=== PATIENT | male | born 1965 | race Two or more races ===

== ENCOUNTER 2024-09-06 13:16 | Inpatient (IN) | payer MEDICARE, OTHER ==
[~2024-09-06] VITALS: Ht 167.6 cm; Wt 59.0 kg
[2024-09-06 14:03] LABS: BASOPHILS # (AUTO) 0.1 K/uL (0.0-0.2); BASOPHILS % (AUTO) 0.7 % (0.0-2.0); EOSINOPHILS # (AUTO) 0.4 K/uL (0.0-0.7); EOSINOPHILS % (AUTO) 4.4 % (0.0-6.0); HEMATOCRIT 28 % (39-51); HEMOGLOBIN 9.5 g/dL (13.5-17.5); LYMPHOCYTES # (AUTO) 2.7 K/uL (0.8-4.8); LYMPHOCYTES % (AUTO) 30.8 % (20.0-44.0); MEAN CORPUSCULAR HEMOGLOBIN 30 PG (26.0-33.0); MEAN CORPUSCULAR HGB CONC 34 g/dl (31.0-36.0); MEAN CORPUSCULAR VOLUME 88 fL (80-96); MONOCYTES # (AUTO) 0.4 K/uL (0.1-1.30); MONOCYTES % (AUTO) 4.4 % (2.0-12.0); NEUTROPHILS # (AUTO) 5.2 K/uL (1.8-8.9); NEUTROPHILS % (AUTO) 59.7 % (43.0-81.0); PLATELET COUNT (AUTO) 397 K/uL (150-450); RED BLOOD CELL COUNT(AUTO) 3.18 MIL/uL (4.5-6.0); RED CELL DISTRIBUTION WIDTH 15.9 % (11.5-15.0); WHITE BLOOD COUNT (AUTO) 8.6 K/uL (4.3-11.0)
[2024-09-06] MEDS ORDERED: FERR325T24 PO (14:09)
[2024-09-06] MEDS ORDERED: ACET325T53 PO (14:09)
[2024-09-06] MEDS ORDERED: MULT-213 PO (14:09)
[2024-09-06] MEDS ORDERED: DOCU100C36 PO (14:09)
[2024-09-06] MEDS ORDERED: VITS42.53 TP (14:09)
[2024-09-06] MEDS ORDERED: CHOL100043 PO (14:09)
[2024-09-06] MEDS ORDERED: POLY17PO4 PO (14:09)
[2024-09-06] MEDS ORDERED: BOOST VHC PO (14:09)
[2024-09-06] MEDS ORDERED: NA P133E RC (14:09)
[2024-09-06] MEDS ORDERED: AMIN30LI24 PO (14:09)
[2024-09-06] MEDS ORDERED: GABA-532 PO (14:09)
[2024-09-06] MEDS ORDERED: MAGN400O6 PO (14:09)
[2024-09-06] MEDS ORDERED: IPRA3AMP23 NEB (14:09)
[2024-09-06] MEDS ORDERED: SENN-261 PO (14:09)
[2024-09-06] MEDS ORDERED: MIDO10TA PO (14:09)
[2024-09-06] MEDS ORDERED: BISA10SU11 RC (14:09)
[2024-09-06] MEDS ORDERED: COLL30OI TP (14:09)
[2024-09-06 14:12] LABS: CALCIUM, SERUM 9.8 mg/dL (8.5-10.1); CREATININE 1.3 mg/dL (0.6-1.3); POTASSIUM 4.5 mmol/L (3.5-5.1)
[2024-09-06] MEDS ORDERED: Z GUARD REMEDY 4 OZ OINT TP PRN (16:00)
[2024-09-06] MEDS ORDERED: POLYETHYLENE GLYCOL 3350 17 GM POWD.PACK PO PRN (16:00)
[2024-09-06] MEDS ORDERED: ONDANSETRON HCL/PF 4 MG/2 ML VIAL IVP PRN (16:00)
[2024-09-06] MEDS ORDERED: BISACODYL SUPP (10 MG) 10 MG/SUPP.RECT SUPP.RECT RC PRN (16:00)
[2024-09-06] MEDS ORDERED: ACETAMINOPHEN 325 MG TABLET PO PRN (16:00)
[2024-09-06] MEDS ORDERED: NA PHOS,M-B/NA PHOS,DI-BA 1 EA ENEMA RC PRN (16:00)
[2024-09-06] MEDS ORDERED: MAGNESIUM HYDROXIDE 30 ML UDC PO PRN ×2 (16:00)
[2024-09-06] MEDS ORDERED: MAG HYDROX/AL HYDROX/SIMETH 30 ML UDC PO PRN (16:00)
[2024-09-06] MEDS ORDERED: MIDODRINE HCL (5MG) 5 MG TABLET PO PRN (16:30)
[2024-09-06 17:35] VITALS: BP 125/74; TEMP 98.6; O2SAT 98
[2024-09-06] MEDS: GABAPENTIN 100 MG CAPSULE PO SCH (18:05)
[2024-09-06] MEDS: DOCUSATE SODIUM 100 MG CAPSULE PO SCH (18:05)
[2024-09-06] MEDS ORDERED: IPRATROPIUM NEB FS 0.5 MG/2.5 ML AMPUL.NEB IH PRN (19:30)
[2024-09-06] MEDS ORDERED: ALBUTEROL FS 2.5 MG/3 ML VIAL.NEB NEB PRN (19:30)
[2024-09-06 20:25] VITALS: BP 101/61; TEMP 98.4; O2SAT 98
[2024-09-06] MEDS: SENNOSIDES 8.6 MG TABLET PO SCH (21:01)
[2024-09-06 23:51] VITALS: BP 101/61; TEMP 98.4; O2SAT 98
[2024-09-07 04:32] VITALS: BP 97/50; TEMP 98.2; O2SAT 97
[2024-09-07 06:33] LABS: BASOPHILS % (AUTO) 0.5 % (0.0-2.0); EOSINOPHILS # (AUTO) 0.4 K/uL (0.0-0.7); EOSINOPHILS % (AUTO) 6.5 % (0.0-6.0); HEMATOCRIT 26 % (39-51); HEMOGLOBIN 8.8 g/dL (13.5-17.5); LYMPHOCYTES # (AUTO) 2.5 K/uL (0.8-4.8); LYMPHOCYTES % (AUTO) 38.1 % (20.0-44.0); MEAN CORPUSCULAR HEMOGLOBIN 30 PG (26.0-33.0); MEAN CORPUSCULAR HGB CONC 34 g/dl (31.0-36.0); MEAN CORPUSCULAR VOLUME 88 fL (80-96); MONOCYTES # (AUTO) 0.4 K/uL (0.1-1.30); MONOCYTES % (AUTO) 6.2 % (2.0-12.0); NEUTROPHILS # (AUTO) 3.2 K/uL (1.8-8.9); NEUTROPHILS % (AUTO) 48.7 % (43.0-81.0); PLATELET COUNT (AUTO) 370 K/uL (150-450); RED BLOOD CELL COUNT(AUTO) 2.94 MIL/uL (4.5-6.0); RED CELL DISTRIBUTION WIDTH 16.1 % (11.5-15.0); WHITE BLOOD COUNT (AUTO) 6.5 K/uL (4.3-11.0)
[2024-09-07 07:20] LABS: CALCIUM, SERUM 9.7 mg/dL (8.5-10.1); CREATININE 1.2 mg/dL (0.6-1.3); MAGNESIUM 2.5 mg/dL (1.8-2.4); PHOSPHORUS 4.9 mg/dL (2.5-4.9); POTASSIUM 3.6 mmol/L (3.5-5.1)
[2024-09-07 08:00] VITALS: BP 110/53; TEMP 98.1; O2SAT 97
[2024-09-07] MEDS: MULTIVIT W/MINERALS 1 TAB TABLET PO SCH (08:37)
[2024-09-07] MEDS: FERROUS SULFATE (325 MG) 325 MG/TAB TABLET PO SCH (08:38)
[2024-09-07 13:49] VITALS: BP 105/55; TEMP 98; O2SAT 96
[2024-09-07] MEDS: ACETAMINOPHEN 325 MG TABLET PO PRN (18:54)
[2024-09-07 20:00] VITALS: BP 95/59; TEMP 98.2; O2SAT 97
[2024-09-08 04:00] VITALS: BP 112/69; TEMP 98.2; O2SAT 99
[2024-09-08 06:26] LABS: BASOPHILS % (AUTO) 0.5 % (0.0-2.0); EOSINOPHILS # (AUTO) 0.6 K/uL (0.0-0.7); EOSINOPHILS % (AUTO) 7.8 % (0.0-6.0); HEMATOCRIT 25 % (39-51); HEMOGLOBIN 8.6 g/dL (13.5-17.5); LYMPHOCYTES # (AUTO) 2.6 K/uL (0.8-4.8); LYMPHOCYTES % (AUTO) 33.8 % (20.0-44.0); MEAN CORPUSCULAR HEMOGLOBIN 29 PG (26.0-33.0); MEAN CORPUSCULAR HGB CONC 34 g/dl (31.0-36.0); MEAN CORPUSCULAR VOLUME 86 fL (80-96); MONOCYTES # (AUTO) 0.5 K/uL (0.1-1.30); MONOCYTES % (AUTO) 7.1 % (2.0-12.0); NEUTROPHILS # (AUTO) 3.9 K/uL (1.8-8.9); NEUTROPHILS % (AUTO) 50.8 % (43.0-81.0); PLATELET COUNT (AUTO) 375 K/uL (150-450); RED BLOOD CELL COUNT(AUTO) 2.95 MIL/uL (4.5-6.0); WHITE BLOOD COUNT (AUTO) 7.7 K/uL (4.3-11.0)
[2024-09-08 06:52] LABS: CALCIUM, SERUM 9.7 mg/dL (8.5-10.1); CREATININE 1.4 mg/dL (0.6-1.3); POTASSIUM 3.7 mmol/L (3.5-5.1)
[2024-09-08 08:00] VITALS: BP 95/64; TEMP 98.4; O2SAT 96
[2024-09-08] MEDS: GLUCERNA SHAKE 237 ML CAN PO SCH (08:53)
[2024-09-08] MEDS: NEPRO VAN 237 ML CAN PO SCH (08:53)
[2024-09-08 16:00] VITALS: BP 107/63; TEMP 98.4; O2SAT 96
[2024-09-08 20:00] VITALS: BP 99/69; TEMP 98.4; O2SAT 97
[2024-09-09 04:00] VITALS: BP 93/61; TEMP 98.6; O2SAT 98
[2024-09-09] MEDS: IV NS 0.9% 1,000 ML BAG IV ONE (06:29)
[2024-09-09 06:38] LABS: CALCIUM, SERUM 9.8 mg/dL (8.5-10.1); CREATININE 1.6 mg/dL (0.6-1.3); POTASSIUM 3.8 mmol/L (3.5-5.1)
[2024-09-09 06:48] LABS: BASOPHILS % (AUTO) 0.5 % (0.0-2.0); EOSINOPHILS # (AUTO) 0.6 K/uL (0.0-0.7); HEMATOCRIT 26 % (39-51); HEMOGLOBIN 8.7 g/dL (13.5-17.5); LYMPHOCYTES # (AUTO) 2.6 K/uL (0.8-4.8); LYMPHOCYTES % (AUTO) 32.1 % (20.0-44.0); MEAN CORPUSCULAR HEMOGLOBIN 30 PG (26.0-33.0); MEAN CORPUSCULAR HGB CONC 34 g/dl (31.0-36.0); MEAN CORPUSCULAR VOLUME 89 fL (80-96); MONOCYTES # (AUTO) 0.5 K/uL (0.1-1.30); MONOCYTES % (AUTO) 5.9 % (2.0-12.0); NEUTROPHILS # (AUTO) 4.4 K/uL (1.8-8.9); NEUTROPHILS % (AUTO) 54.5 % (43.0-81.0); PLATELET COUNT (AUTO) 364 K/uL (150-450); RED BLOOD CELL COUNT(AUTO) 2.91 MIL/uL (4.5-6.0); RED CELL DISTRIBUTION WIDTH 15.9 % (11.5-15.0); WHITE BLOOD COUNT (AUTO) 8.2 K/uL (4.3-11.0)
[2024-09-09 06:59] LABS: INR 1.03 (0.91-1.10); PROTHROMBIN TIME 10.9 SECS (9.2-11.1)
[2024-09-09 08:00] VITALS: BP 97/55; TEMP 98.8; O2SAT 99
[2024-09-09] MEDS: IV NS 0.9% 1,000 ML IV ONE (10:35)
[2024-09-09] MEDS: THERAHONEY GEL 1.5 OZ TUBE TP SCH (12:07)
[2024-09-09 16:00] VITALS: BP 93/58; TEMP 98.6; O2SAT 97
[2024-09-09] MEDS ORDERED: LIDOCAINE 2%-EPI 1:100,000 30 ML VIAL TP ONE (19:30)
[2024-09-09 20:00] VITALS: BP 99/64; TEMP 98.2; O2SAT 99
[2024-09-09] MEDS ORDERED: LIDOCAINE 2%-EPI 1:100,000 30 ML VIAL IJ ONE ×2 (20:30→21:00)
[2024-09-09] MEDS ORDERED: LIDOCAINE 2%-EPI 1:100,000 30 ML VIAL IJ SCH (21:00)
[2024-09-10 04:00] VITALS: BP 95/60; TEMP 97.7; O2SAT 99
[2024-09-10 07:02] LABS: BASOPHILS % (AUTO) 0.5 % (0.0-2.0); EOSINOPHILS # (AUTO) 0.6 K/uL (0.0-0.7); EOSINOPHILS % (AUTO) 9.6 % (0.0-6.0); HEMATOCRIT 25 % (39-51); HEMOGLOBIN 8.2 g/dL (13.5-17.5); LYMPHOCYTES # (AUTO) 2.4 K/uL (0.8-4.8); MEAN CORPUSCULAR HEMOGLOBIN 29 PG (26.0-33.0); MEAN CORPUSCULAR HGB CONC 33 g/dl (31.0-36.0); MEAN CORPUSCULAR VOLUME 87 fL (80-96); MONOCYTES # (AUTO) 0.4 K/uL (0.1-1.30); MONOCYTES % (AUTO) 5.7 % (2.0-12.0); NEUTROPHILS # (AUTO) 3.1 K/uL (1.8-8.9); NEUTROPHILS % (AUTO) 47.2 % (43.0-81.0); PLATELET COUNT (AUTO) 357 K/uL (150-450); RED BLOOD CELL COUNT(AUTO) 2.86 MIL/uL (4.5-6.0); RED CELL DISTRIBUTION WIDTH 15.7 % (11.5-15.0); WHITE BLOOD COUNT (AUTO) 6.6 K/uL (4.3-11.0)
[2024-09-10 07:26] LABS: ALBUMIN 2.3 g/dL (3.4-5.0); BILIRUBIN,TOTAL 0.2 mg/dL (0.2-1.0); CALCIUM, SERUM 9.3 mg/dL (8.5-10.1); CREATININE 1.1 mg/dL (0.6-1.3); MAGNESIUM 2.4 mg/dL (1.8-2.4); PHOSPHORUS 3.7 mg/dL (2.5-4.9); POTASSIUM 3.5 mmol/L (3.5-5.1); TOTAL PROTEIN, SERUM 7.3 g/dL (6.4-8.2)
[2024-09-10] MEDS: DAKINS QUARTER STRENGTH (0.125%) 480 ML BOTTLE TOP SCH (09:46)
[2024-09-10] MEDS: UREA 10% -AHA 4% CREAM 57 GM TUBE TP SCH (09:47)
[2024-09-10 10:57] VITALS: BP 108/62; O2SAT 97
[2024-09-10 16:00] VITALS: BP 128/78; TEMP 98
[2024-09-10 20:00] VITALS: BP 107/68; TEMP 97.5; O2SAT 100
[2024-09-11 04:00] VITALS: BP 108/66; TEMP 98; O2SAT 98
[2024-09-11 07:10] LABS: PTH, INTACT 6 pg/mL (15-65)
[2024-09-11 09:11] VITALS: BP 98/60; TEMP 98.6
[2024-09-11] MEDS: MORPHINE SULFATE INJ 2 MG/ML DISP.SYRIN IV PRN (10:56)
[2024-09-11] MEDS ORDERED: FLUMAZENIL 0.5 MG VIAL IV PRN (11:30)
[2024-09-11] MEDS ORDERED: MIDAZOLAM HCL 2 MG/2ML VIAL IV PRN (11:30)
[2024-09-11] MEDS ORDERED: FENTANYL PF 250MCG/5ML AMPUL IV PRN (11:30)
[2024-09-11] MEDS ORDERED: NALOXONE PREFILLED SYRINGE 2 MG/2 ML SYRINGE IV PRN (11:30)
[2024-09-11 16:00] VITALS: BP 109/61; TEMP 98; O2SAT 98
[2024-09-11 18:41] VITALS: BP 110/65; O2SAT 97
[2024-09-11 20:00] VITALS: BP 102/68; TEMP 99; O2SAT 100
[2024-09-12 04:00] VITALS: BP 107/53; TEMP 99; O2SAT 100
[2024-09-12 10:55] VITALS: BP 115/62; TEMP 98
[2024-09-12 16:00] VITALS: BP 115/62; TEMP 98; O2SAT 98
[2024-09-12 20:00] VITALS: BP 99/72; TEMP 100; O2SAT 98
[2024-09-13 04:00] VITALS: BP 103/58; TEMP 98.4; O2SAT 99
[2024-09-13 08:00] VITALS: BP 93/58; TEMP 99.1; O2SAT 99
[2024-09-16 16:11] LABS: *SPE A/G RATIO 0.6 (0.7-1.7); *SPE ALBUMIN 2.5 g/dL (2.9-4.4); *SPE ALPHA-1-GLOBULIN 0.3 g/dL (0.0-0.4); *SPE ALPHA-2-GLOBULIN 0.8 g/dL (0.4-1.0); *SPE M-SPIKE Not Observed g/dL (Not Observed); *SPE PROTEIN TOTAL 6.5 g/dL (6.0-8.5); *SPEGAMMA GLOBULIN 1.9 g/dL (0.4-1.8)
== END 2024-09-13 15:20 | DRG 981 ==
LOC: ER 13:36 → MEDSG1 16:32
PROVIDERS: ADMIT Internal Medicine; ATTEND Internal Medicine
PROC: 0KBP0ZZ Excision of Left Hip Muscle, Open Approach (ICD-10-PCS; principal; 2024-09-10)
PROC: 0KBN0ZZ Excision of Right Hip Muscle, Open Approach (ICD-10-PCS; 2024-09-10)
PROC: 0T25X0Z Change Drainage Device in Kidney, External Approach (ICD-10-PCS; 2024-09-11)
DX: N99.522 Malfunction of incontinent external stoma of urinary tract (principal); L89.154 Pressure ulcer of sacral region, stage 4; L89.214 Pressure ulcer of right hip, stage 4; L89.224 Pressure ulcer of left hip, stage 4; N13.30 Unspecified hydronephrosis; Y73.2 Prosthetic and other implants, materials and accessory gastroenterology and urology devices associated with adverse incidents; G90.89 Other disorders of autonomic nervous system; D63.8 Anemia in other chronic diseases classified elsewhere; G62.9 Polyneuropathy, unspecified; D63.1 Anemia in chronic kidney disease; Y92.9 Unspecified place or not applicable; Z79.51 Long term (current) use of inhaled steroids; Z79.899 Other long term (current) drug therapy; G31.84 Mild cognitive impairment of uncertain or unknown etiology; N18.9 Chronic kidney disease, unspecified; M89.8X9 Other specified disorders of bone, unspecified site; Z87.442 Personal history of urinary calculi; N13.9 Obstructive and reflux uropathy, unspecified; B35.1 Tinea unguium; M24.561 Contracture, right knee; M24.562 Contracture, left knee; L85.9 Epidermal thickening, unspecified
CPT/HCPCS: 36415; 76770-TC; 80048-TC; 80053-TC; 82550-TC; 82962-TC; 83735-TC; 83970; 84100-TC; 84155; 84165; 85025-TC; 85610-TC; 87081-TC; A4223; A6253; A6403; G0378; J2250; J2270; J3010; J3490; J7030; J7040

== ENCOUNTER 2024-10-19 02:41 | Inpatient (IN) | payer MEDICARE, OTHER ==
[~2024-10-19] VITALS: Ht 162.6 cm; Wt 49.9 kg
[~2024-10-19 02:41] MED LIST: ACET325T53 PO; AMIN30LI24 PO; BISA10SU11 RC; BOOST VHC PO; CHOL100043 PO; COLL30OI TP; DOCU100C36 PO; FERR325T24 PO; GABA-532 PO; IPRA3AMP23 NEB; MAGN400O6 PO; MIDO10TA PO; MULT-213 PO; NA P133E RC; POLY17PO4 PO; SENN-261 PO; VITS42.53 TP
[2024-10-19 03:25] LABS: BASOPHILS % (AUTO) 0.6 % (0.0-2.0); EOSINOPHILS # (AUTO) 0.4 K/uL (0.0-0.7); EOSINOPHILS % (AUTO) 5.9 % (0.0-6.0); HEMATOCRIT 24 % (39-51); HEMOGLOBIN 7.9 g/dL (13.5-17.5); LYMPHOCYTES # (AUTO) 2.5 K/uL (0.8-4.8); LYMPHOCYTES % (AUTO) 37.4 % (20.0-44.0); MEAN CORPUSCULAR HEMOGLOBIN 28 PG (26.0-33.0); MEAN CORPUSCULAR HGB CONC 33 g/dl (31.0-36.0); MEAN CORPUSCULAR VOLUME 85 fL (80-96); MONOCYTES # (AUTO) 0.4 K/uL (0.1-1.30); MONOCYTES % (AUTO) 5.6 % (2.0-12.0); NEUTROPHILS # (AUTO) 3.4 K/uL (1.8-8.9); NEUTROPHILS % (AUTO) 50.5 % (43.0-81.0); PLATELET COUNT (AUTO) 346 K/uL (150-450); RED BLOOD CELL COUNT(AUTO) 2.88 MIL/uL (4.5-6.0); RED CELL DISTRIBUTION WIDTH 17.4 % (11.5-15.0); WHITE BLOOD COUNT (AUTO) 6.7 K/uL (4.3-11.0)
[2024-10-19 03:31] LABS: CALCIUM, SERUM 10.3 mg/dL (8.5-10.1); POTASSIUM 4.1 mmol/L (3.5-5.1)
[2024-10-19 03:43] LABS: INR 1.05 (0.91-1.10); PROTHROMBIN TIME 11.1 SECS (9.2-11.1)
[2024-10-19 04:19] LABS: APPEARANCE,URINE CLOUDY (CLEAR); BILIRUBIN,URINE NEGATIVE (NEGATIVE); BLOOD, URINE 3+ Ery/uL (NEGATIVE); COLOR,URINE YELLOW (YELLOW); KETONES,URINE NEGATIVE (NEGATIVE); LEUKOCYTE ESTERASE ,URINE 3+ (NEGATIVE); NITRITE, URINE NEGATIVE (NEGATIVE); PROTEIN,URINE 1+ mg/dl (NEGATIVE); UGLUCOSE NEGATIVE (NEGATIVE); UROBILINOGEN,URINE 0.2 EU/dL (0.2)
[2024-10-19 04:35] LABS: RBC,URINE 81-100 /HPF (0-2); WBC,URINE 21-50 /HPF (0-3)
[2024-10-19 04:36] LABS: ADD URINE CULTURE YES; BACTERIA,URINE Many /HPF (None Seen); SQUAMOUS EPITHELIAL CELL,UR Few /HPF (None Seen)
[2024-10-19] MEDS: CEFTRIAXONE 1GM BAG (ER ONLY) 50 ML IV ONE (05:28)
[2024-10-19] MEDS: IV NS 0.9% 1,000 ML IV PRN (06:11)
[2024-10-19] MEDS ORDERED: Z GUARD REMEDY 4 OZ OINT TP PRN (06:30)
[2024-10-19] MEDS: PANTOPRAZOLE 40 MG TABLET.DR PO SCH (07:30)
[2024-10-19] MEDS ORDERED: PANTOPRAZOLE 40 MG TABLET.DR PO ONE (08:33)
[2024-10-19] MEDS: ENOXAPARIN SODIUM 40 MG/0.4 ML DISP.SYRIN SQ SCH (13:12)
[2024-10-19 13:30] VITALS: BP 121/71; TEMP 97.7; O2SAT 98
[2024-10-19 16:00] VITALS: BP 97/53; TEMP 97.9; O2SAT 98
[2024-10-19 20:00] VITALS: BP 109/63; TEMP 98.5; O2SAT 98
[2024-10-20] MEDS: CEFTRIAXONE 1 G in IV D5W 50 ML IV SCH (05:09)
[2024-10-20 07:30] VITALS: BP 102/60; TEMP 99.1; O2SAT 97
[2024-10-20] MEDS ORDERED: NUT.237L67 PO (08:46)
[2024-10-20] MEDS ORDERED: TAMS-12 PO (08:46)
[2024-10-20 16:00] VITALS: BP 109/64; TEMP 100.4; O2SAT 97
[2024-10-20] MEDS: ONDANSETRON HCL/PF 4 MG/2 ML VIAL IVP PRN (17:45)
[2024-10-20] MEDS: ACETAMINOPHEN 325 MG TABLET PO PRN (17:45)
[2024-10-20 20:00] VITALS: BP 113/69; TEMP 98.8; O2SAT 98
[2024-10-20 21:40] VITALS: BP 113/69; TEMP 98.8; O2SAT 98
[2024-10-21 08:00] VITALS: BP 115/73; TEMP 98.2; O2SAT 98
[2024-10-21] MEDS ORDERED: POLYETHYLENE GLYCOL 3350 17 GM POWD.PACK PO PRN (11:00)
[2024-10-21] MEDS ORDERED: ACETAMINOPHEN 325 MG TABLET PO PRN (11:00)
[2024-10-21] MEDS: DAKINS QUARTER STRENGTH (0.125%) 480 ML BOTTLE TOP SCH (13:00)
[2024-10-21] MEDS: PROSOURCE / PROSTAT (PYXIS) 30 ML UDC PO SCH (13:00)
[2024-10-21 16:00] VITALS: BP 104/60; TEMP 98.8; O2SAT 98
[2024-10-21] MEDS: DOCUSATE SODIUM 100 MG CAPSULE PO SCH (17:34)
[2024-10-21 20:00] VITALS: BP 110/70; TEMP 97.6; O2SAT 98
[2024-10-21] MEDS ORDERED: LIDOCAINE 2%-EPI 1:100,000 30 ML VIAL TP ONE (20:00)
[2024-10-21] MEDS: GABAPENTIN 100 MG CAPSULE PO SCH (21:04)
[2024-10-21] MEDS: TAMSULOSIN 0.4 MG CAP.SR.24H PO SCH (21:04)
[2024-10-21] MEDS: SENNOSIDES 8.6 MG TABLET PO SCH (21:04)
[2024-10-22] VITALS (12 sets, daily range): BP systolic 77–110; BP diastolic 41–87; TEMP 97.7–98.8; O2SAT 98–100
[2024-10-22 06:56] LABS: CALCIUM, SERUM 8.8 mg/dL (8.5-10.1); CREATININE 1.5 mg/dL (0.6-1.3); POTASSIUM 3.9 mmol/L (3.5-5.1)
[2024-10-22 07:15] LABS: BASOPHILS % (AUTO) 0.4 % (0.0-2.0); EOSINOPHILS # (AUTO) 0.3 K/uL (0.0-0.7); EOSINOPHILS % (AUTO) 5.6 % (0.0-6.0); HEMATOCRIT 23 % (39-51); HEMOGLOBIN 7.4 g/dL (13.5-17.5); LYMPHOCYTES # (AUTO) 1.6 K/uL (0.8-4.8); LYMPHOCYTES % (AUTO) 31.6 % (20.0-44.0); MEAN CORPUSCULAR HEMOGLOBIN 28 PG (26.0-33.0); MEAN CORPUSCULAR HGB CONC 33 g/dl (31.0-36.0); MEAN CORPUSCULAR VOLUME 85 fL (80-96); MONOCYTES # (AUTO) 0.4 K/uL (0.1-1.30); MONOCYTES % (AUTO) 8.6 % (2.0-12.0); NEUTROPHILS # (AUTO) 2.7 K/uL (1.8-8.9); NEUTROPHILS % (AUTO) 53.8 % (43.0-81.0); PLATELET COUNT (AUTO) 278 K/uL (150-450); RED BLOOD CELL COUNT(AUTO) 2.65 MIL/uL (4.5-6.0); RED CELL DISTRIBUTION WIDTH 17.6 % (11.5-15.0); WHITE BLOOD COUNT (AUTO) 4.9 K/uL (4.3-11.0)
[2024-10-22 07:16] LABS: INR 1.03 (0.91-1.10); PARTIAL THROMBOPLASTIN TIME 29.9 SEC (24.3-34.3); PROTHROMBIN TIME 10.9 SECS (9.2-11.1)
[2024-10-22] MEDS: NEPRO VAN 237 ML CAN PO SCH (09:00)
[2024-10-22] MEDS: CHOLECALCIFEROL 1,000 UNIT TABLET (VIT D3) PO SCH (09:00)
[2024-10-22] MEDS: FERROUS SULFATE (325 MG) 325 MG/TAB TABLET PO SCH (09:00)
[2024-10-22] MEDS: MULTIVIT W/MINERALS 1 TAB TABLET PO SCH (09:00)
[2024-10-22] MEDS: VITAMINS A AND D 56.7 GM TUBE TP SCH (09:42)
[2024-10-22] MEDS: THERAHONEY GEL 1.5 OZ TUBE TP SCH (09:43)
[2024-10-22] MEDS ORDERED: AMPI500C11 PO (11:00)
[2024-10-22] MEDS ORDERED: NALOXONE PREFILLED SYRINGE 2 MG/2 ML SYRINGE IV PRN (12:00)
[2024-10-22] MEDS ORDERED: MIDAZOLAM HCL 2 MG/2ML VIAL IV PRN (12:00)
[2024-10-22] MEDS ORDERED: FLUMAZENIL 0.5 MG VIAL IV PRN (12:00)
[2024-10-22] MEDS ORDERED: FENTANYL PF 250MCG/5ML AMPUL IV PRN (12:00)
[2024-10-22] MEDS: IV NS 0.9% 500 ML IV ONE (13:16)
[2024-10-22] MEDS: IV NS 0.9% 250 ML IV ONE (15:41)
[2024-10-23 08:00] VITALS: BP 105/63; TEMP 99.3; O2SAT 96
[2024-10-23] MEDS: AMPICILLIN TRIHYDRATE 500 MG CAPSULE PO SCH (11:56)
== END 2024-10-23 13:20 | DRG 698 ==
LOC: ER 02:48 → MED 09:26
PROVIDERS: ADMIT Nurse Practitioner Family; ATTEND Nurse Practitioner Family
PROC: 0HBRXZZ Excision of Toe Nail, External Approach (ICD-10-PCS; 2024-10-21)
PROC: 0T9330Z Drainage of Right Kidney Pelvis with Drainage Device, Percutaneous Approach (ICD-10-PCS; principal; 2024-10-22)
DX: T83.022A Displacement of nephrostomy catheter, initial encounter (principal); L89.154 Pressure ulcer of sacral region, stage 4; L89.224 Pressure ulcer of left hip, stage 4; L89.214 Pressure ulcer of right hip, stage 4; N13.6 Pyonephrosis; B95.2 Enterococcus as the cause of diseases classified elsewhere; E83.52 Hypercalcemia; B35.1 Tinea unguium; L85.3 Xerosis cutis; L60.3 Nail dystrophy; N18.9 Chronic kidney disease, unspecified; I12.9 Hypertensive chronic kidney disease with stage 1 through stage 4 chronic kidney disease, or unspecified chronic kidney disease; G62.9 Polyneuropathy, unspecified; D63.1 Anemia in chronic kidney disease; G90.89 Other disorders of autonomic nervous system; R41.89 Other symptoms and signs involving cognitive functions and awareness
CPT/HCPCS: 36415; 76770-TC; 80048-TC; 81001; 85025-TC; 85610-TC; 85730-TC; 87040-TC; 87081-TC; 87086-TC; 87186-TC; A4223; A6403; G0378; J0696; J1650; J2405; J3490; J7030; J7040; J7050; J7060

== ENCOUNTER 2024-12-29 16:25 | Inpatient (IN) | payer MEDICARE, OTHER ==
[~2024-12-29] VITALS: Ht 172.7 cm; Wt 48.5 kg
[~2024-12-29 16:25] MED LIST changes: +AMPI500C11 PO; -BISA10SU11 RC; -BOOST VHC PO; -IPRA3AMP23 NEB; -MAGN400O6 PO; -MIDO10TA PO; -NA P133E RC; +NUT.237L67 PO; +TAMS-12 PO
[2024-12-29 17:19] LABS: PLATELET COUNT (AUTO) 207 K/uL (150-450); RED BLOOD CELL COUNT(AUTO) 4.56 MIL/uL (4.5-6.0); RED CELL DISTRIBUTION WIDTH 18.7 % (11.5-15.0); WHITE BLOOD COUNT (AUTO) 9.3 K/uL (4.3-11.0)
[2024-12-29] MEDS: IV NS 0.9% 1,000 ML BAG IV ONE (17:30)
[2024-12-29] MEDS ORDERED: ASCO-352 PO (17:51)
[2024-12-29] MEDS ORDERED: BISA10SU11 RC (17:51)
[2024-12-29] MEDS ORDERED: NIRM1TAB10 PO (17:51)
[2024-12-29] MEDS ORDERED: GUAI10LI12 PO (17:51)
[2024-12-29] MEDS ORDERED: TRAM50TA2 PO (17:51)
[2024-12-29] MEDS ORDERED: IPRA3AMP22 IH (17:51)
[2024-12-29] MEDS ORDERED: NA P133E RC (17:51)
[2024-12-29] MEDS ORDERED: MAGN400O6 PO (17:51)
[2024-12-29 18:02] LABS: APPEARANCE,URINE BLOODY (CLEAR)
[2024-12-29 18:10] LABS: CALCIUM, SERUM 8.9 mg/dL (8.5-10.1); CREATININE 1.2 mg/dL (0.6-1.3); SODIUM SERUM 136.0 mmol/L (136-145); UREA NITROGEN, BLOOD 23.0 mg/dL (7-18)
[2024-12-29 18:15] LABS: ASPARTATE AMINOTRANSFERASE 44.0 U/L (15-37); TOTAL PROTEIN, SERUM 7.8 g/dL (6.4-8.2)
[2024-12-29 18:16] LABS: SQUAMOUS EPITHELIAL CELL,UR 0-2 /HPF (None Seen)
[2024-12-29] MEDS ORDERED: ONDANSETRON HCL/PF 4 MG/2 ML VIAL IVP PRN (19:00)
[2024-12-29] MEDS ORDERED: MAGNESIUM HYDROXIDE 30 ML UDC PO PRN (19:00)
[2024-12-29] MEDS ORDERED: MAG HYDROX/AL HYDROX/SIMETH 30 ML UDC PO PRN (19:00)
[2024-12-29] MEDS ORDERED: MORPHINE SULFATE INJ 2 MG/ML DISP.SYRIN IV PRN (19:00)
[2024-12-29] MEDS ORDERED: Z GUARD REMEDY 4 OZ OINT TP PRN (19:00)
[2024-12-29] MEDS ORDERED: ALBUTEROL FS 2.5 MG/0.5 ML VIAL.NEB NEB PRN (19:00)
[2024-12-29] MEDS ORDERED: CEFTRIAXONE 1GM BAG (ER ONLY) 50 ML IV ONE (19:27)
[2024-12-29] MEDS ORDERED: ONDANSETRON HCL/PF 4 MG/2 ML VIAL ONE (19:27)
[2024-12-29] MEDS ORDERED: MORPHINE SULFATE INJ 2 MG/ML DISP.SYRIN ONE (19:28)
[2024-12-29 19:29] LABS: EOSINOPHILS % (MANUAL) 5 % (0-4); LYMPHOCYTES % (MANUAL) 35 % (16-48); MONOCYTES % (MANUAL) 1 % (0-11.0); NEUTROPHILS % (MANUAL) 59 (42-76); PLATELET ESTIMATE ADEQU
[2024-12-29] MEDS: ONDANSETRON HCL/PF 4 MG/2 ML VIAL IV ONE (19:30)
[2024-12-29] MEDS: MORPHINE SULFATE INJ 2 MG/ML DISP.SYRIN IV ONE (19:31)
[2024-12-29] MEDS: CEFTRIAXONE 1GM BAG (ER ONLY) 50 ML IV ONE (19:35)
[2024-12-29] MEDS ORDERED: POLYETHYLENE GLYCOL 3350 17 GM POWD.PACK PO PRN (20:00)
[2024-12-29] MEDS ORDERED: GUAIFENESIN/D-METHORPHAN HB 5 ML UDC PO PRN (20:00)
[2024-12-29] MEDS ORDERED: LEVOFLOXACIN 750 MG /D5W 150ML 150 ML IV ONE (20:53)
[2024-12-29] MEDS: IV NS 0.9% 1,000 ML IV SCH (21:26)
[2024-12-29] MEDS: LEVOFLOXACIN 750 MG /D5W 150ML 750 MG in PREMIX 1 EA IV SCH (21:26)
[2024-12-29 21:30] VITALS: BP 139/92; TEMP 97.5; O2SAT 96
[2024-12-29] MEDS: SENNOSIDES 8.6 MG TABLET PO SCH (21:54)
[2024-12-29] MEDS ORDERED: HYDROCODONE/APAP 5/325MG TABLET PO PRN (23:30)
[2024-12-30 07:12] LABS: CALCIUM, SERUM 8.6 mg/dL (8.5-10.1); CREATININE 1.4 mg/dL (0.6-1.3); SODIUM SERUM 139.0 mmol/L (136-145); UREA NITROGEN, BLOOD 19.0 mg/dL (7-18)
[2024-12-30 07:26] LABS: PLATELET COUNT (AUTO) 246 K/uL (150-450); RED BLOOD CELL COUNT(AUTO) 4.02 MIL/uL (4.5-6.0); RED CELL DISTRIBUTION WIDTH 17.7 % (11.5-15.0); WHITE BLOOD COUNT (AUTO) 5.5 K/uL (4.3-11.0)
[2024-12-30] MEDS: PANTOPRAZOLE 40 MG TABLET.DR PO SCH (07:28)
[2024-12-30 08:00] VITALS: BP 125/79; TEMP 97.5; O2SAT 98
[2024-12-30] MEDS: DOCUSATE SODIUM 100 MG CAPSULE PO SCH (08:16)
[2024-12-30] MEDS: MULTIVITAMINS,THERAGRAN 1 UDTAB TABLET PO SCH (08:16)
[2024-12-30] MEDS: ASCORBIC ACID 500 MG TABLET PO SCH (08:16)
[2024-12-30] MEDS: PROSOURCE / PROSTAT (PYXIS) 30 ML UDC PO SCH (08:17)
[2024-12-30] MEDS ORDERED: RITONAVIR PO SCH (09:00)
[2024-12-30] MEDS ORDERED: TRAMADOL HCL 50 MG TABLET PO SCH (09:00)
[2024-12-30] MEDS ORDERED: [UNRECOGNIZED DRUG - OTHER] PO SCH (09:00)
[2024-12-30] MEDS ORDERED: NIRMATRELVIR PO SCH (09:00)
[2024-12-30] MEDS: THERAHONEY GEL 1.5 OZ TUBE TP SCH (13:10)
[2024-12-30] MEDS ORDERED: GADOTERATE MEGLUMINE 10 MMOL/20 ML VIAL IV ONE (15:08)
[2024-12-30 16:00] VITALS: BP 137/81; TEMP 98.6; O2SAT 98
[2024-12-30 20:00] VITALS: BP 119/76; TEMP 99.3; O2SAT 96
[2024-12-30] MEDS: ACETAMINOPHEN 325 MG TABLET PO PRN (22:01)
[2024-12-31 08:00] VITALS: BP 139/91; TEMP 97.9; O2SAT 99
[2024-12-31 10:38] LABS: PLATELET COUNT (AUTO) 243 K/uL (150-450); RED BLOOD CELL COUNT(AUTO) 3.95 MIL/uL (4.5-6.0); RED CELL DISTRIBUTION WIDTH 18.1 % (11.5-15.0); WHITE BLOOD COUNT (AUTO) 4.6 K/uL (4.3-11.0)
[2024-12-31 11:17] LABS: CALCIUM, SERUM 8.4 mg/dL (8.5-10.1); CREATININE 1.3 mg/dL (0.6-1.3); SODIUM SERUM 136.0 mmol/L (136-145); UREA NITROGEN, BLOOD 16.0 mg/dL (7-18)
[2024-12-31 11:18] LABS: ASPARTATE AMINOTRANSFERASE 23.0 U/L (15-37); PHOSPHORUS 2.6 mg/dL (2.5-4.9); TOTAL PROTEIN, SERUM 7.0 g/dL (6.4-8.2)
[2024-12-31 16:00] VITALS: BP 135/88; TEMP 98.8; O2SAT 98
[2024-12-31 20:22] VITALS: BP 132/83; TEMP 98.6; O2SAT 98
[2024-12-31 20:55] VITALS: BP 132/83; TEMP 98.6; O2SAT 98
[2024-12-31] MEDS: LEVOFLOXACIN (250MG) 250 MG TABLET PO SCH (21:06)
[2024-12-31] MEDS: IV NS 0.9% 1,000 ML IV PRN (23:48)
[2025-01-01 07:26] LABS: CALCIUM, SERUM 9.1 mg/dL (8.5-10.1); CREATININE 1.3 mg/dL (0.6-1.3); SODIUM SERUM 140.0 mmol/L (136-145); UREA NITROGEN, BLOOD 17.0 mg/dL (7-18)
[2025-01-01 07:30] VITALS: BP 154/85; TEMP 98.1; O2SAT 98
[2025-01-01 07:57] VITALS: BP 154/85; TEMP 98.1; O2SAT 98
[2025-01-01] MEDS ORDERED: NEPRO VAN 237 ML CAN PO PRN (10:30)
[2025-01-01 14:00] VITALS: BP 129/72
== END 2025-01-01 14:56 | DRG 698 ==
LOC: ER 16:25 → MED 20:20
PROVIDERS: ADMIT Registered Nurse Psychiatric/Mental Health; ATTEND Nurse Practitioner Acute Care
DX: N99.520 Hemorrhage of incontinent external stoma of urinary tract (principal); L89.144 Pressure ulcer of left lower back, stage 4; L89.214 Pressure ulcer of right hip, stage 4; L89.154 Pressure ulcer of sacral region, stage 4; L89.224 Pressure ulcer of left hip, stage 4; N17.0 Acute kidney failure with tubular necrosis; E44.0 Moderate protein-calorie malnutrition; I69.354 Hemiplegia and hemiparesis following cerebral infarction affecting left non-dominant side; D68.59 Other primary thrombophilia; N13.6 Pyonephrosis; L97.329 Non-pressure chronic ulcer of left ankle with unspecified severity; I12.9 Hypertensive chronic kidney disease with stage 1 through stage 4 chronic kidney disease, or unspecified chronic kidney disease; N18.9 Chronic kidney disease, unspecified; Z20.822 Contact with and (suspected) exposure to COVID-19; Y84.8 Other medical procedures as the cause of abnormal reaction of the patient, or of later complication, without mention of misadventure at the time of the procedure; Y92.129 Unspecified place in nursing home as the place of occurrence of the external cause; N40.0 Benign prostatic hyperplasia without lower urinary tract symptoms; E78.5 Hyperlipidemia, unspecified; E11.42 Type 2 diabetes mellitus with diabetic polyneuropathy; E11.22 Type 2 diabetes mellitus with diabetic chronic kidney disease; N25.0 Renal osteodystrophy; Z86.16 Personal history of COVID-19; K21.9 Gastro-esophageal reflux disease without esophagitis; M62.462 Contracture of muscle, left lower leg; M62.461 Contracture of muscle, right lower leg; M62.432 Contracture of muscle, left forearm; Z79.51 Long term (current) use of inhaled steroids; Z79.899 Other long term (current) drug therapy; D63.8 Anemia in other chronic diseases classified elsewhere; Z87.442 Personal history of urinary calculi; E88.09 Other disorders of plasma-protein metabolism, not elsewhere classified; B35.1 Tinea unguium; E11.621 Type 2 diabetes mellitus with foot ulcer; L89.896 Pressure-induced deep tissue damage of other site; L97.529 Non-pressure chronic ulcer of other part of left foot with unspecified severity; L89.526 Pressure-induced deep tissue damage of left ankle; L98.9 Disorder of the skin and subcutaneous tissue, unspecified; E11.622 Type 2 diabetes mellitus with other skin ulcer; Z74.09 Other reduced mobility
CPT/HCPCS: 36415; 71045-TC; 74018; 80048-TC; 80053-TC; 80076-TC; 81001; 83690-TC; 83735-TC; 84100-TC; 85025-TC; 85027-TC; 87040-TC; 87081-TC; 87086-TC; 87186-TC; 94799-TC; A4216; A4223; A6213; A6223; A6403; A9575; G0378; J0696; J1956; J2270; J2405; J7030

== ENCOUNTER 2025-02-07 16:01 | Inpatient (IN) | payer MEDICARE, OTHER ==
[~2025-02-07] VITALS: Ht 167.6 cm; Wt 51.3 kg
[~2025-02-07 16:01] MED LIST changes: -AMPI500C11 PO; +ASCO-352 PO; +BISA10SU11 RC; -CHOL100043 PO; -COLL30OI TP; -FERR325T24 PO; -GABA-532 PO; +GUAI10LI12 PO; +IPRA3AMP22 IH; +MAGN400O6 PO; +NA P133E RC; +NIRM1TAB10 PO; -NUT.237L67 PO; -TAMS-12 PO; +TRAM50TA2 PO; -VITS42.53 TP
[2025-02-07 16:33] LABS: PLATELET COUNT (AUTO) 382 K/uL (150-450); RED BLOOD CELL COUNT(AUTO) 3.64 MIL/uL (4.5-6.0); RED CELL DISTRIBUTION WIDTH 16.3 % (11.5-15.0); WHITE BLOOD COUNT (AUTO) 9.2 K/uL (4.3-11.0)
[2025-02-07 16:39] LABS: CALCIUM, SERUM 9.5 mg/dL (8.5-10.1); CREATININE 1.3 mg/dL (0.6-1.3); SODIUM SERUM 133.0 mmol/L (136-145); UREA NITROGEN, BLOOD 57.0 mg/dL (7-18)
[2025-02-07 16:50] LABS: ASPARTATE AMINOTRANSFERASE 16.0 U/L (15-37); TOTAL PROTEIN, SERUM 8.4 g/dL (6.4-8.2)
[2025-02-07] MEDS ORDERED: MIDO10TA PO (16:58)
[2025-02-07] MEDS ORDERED: MAG30ORA PO (16:58)
[2025-02-07] MEDS ORDERED: NUT.237L71 PO (16:58)
[2025-02-07] MEDS ORDERED: CHOL200026 PO (16:58)
[2025-02-07] MEDS ORDERED: OMEP20CA15 PO (16:58)
[2025-02-07] MEDS: IV NS 0.9% 1,000 ML BAG IV ONE (17:30)
[2025-02-07] MEDS ORDERED: ACETAMINOPHEN 325 MG TABLET PO PRN (18:00)
[2025-02-07] MEDS ORDERED: BISACODYL SUPP (10 MG) 10 MG/SUPP.RECT SUPP.RECT RC PRN (18:00)
[2025-02-07] MEDS ORDERED: MAG HYDROX/AL HYDROX/SIMETH 30 ML UDC PO PRN ×2 (18:00→20:00)
[2025-02-07] MEDS ORDERED: POLYETHYLENE GLYCOL 3350 17 GM POWD.PACK PO PRN (18:00)
[2025-02-07] MEDS ORDERED: MAGNESIUM HYDROXIDE 30 ML UDC PO PRN ×2 (18:00→20:00)
[2025-02-07] MEDS ORDERED: NA PHOS,M-B/NA PHOS,DI-BA 1 EA ENEMA RC PRN (18:00)
[2025-02-07] MEDS ORDERED: ONDANSETRON HCL/PF 4 MG/2 ML VIAL IVP PRN (20:00)
[2025-02-07] MEDS ORDERED: Z GUARD REMEDY 4 OZ OINT TP PRN (20:00)
[2025-02-07 21:20] VITALS: BP 122/74; TEMP 97.5; O2SAT 98
[2025-02-07 21:30] VITALS: BP 122/74; TEMP 97.5; O2SAT 98
[2025-02-07] MEDS: SENNOSIDES 8.6 MG TABLET PO SCH (22:11)
[2025-02-07] MEDS: ACETAMINOPHEN 325 MG TABLET PO PRN (23:08)
[2025-02-08 00:47] LABS: APPEARANCE,URINE CLOUDY (CLEAR)
[2025-02-08 00:49] LABS: SQUAMOUS EPITHELIAL CELL,UR Few /HPF (None Seen)
[2025-02-08 00:50] LABS: CALCIUM OXALATE CRYSTALS,UR Few /HPF (None Seen)
[2025-02-08] MEDS: IV D5/ 0.9% NACL 1,000 ML IV PRN (02:55)
[2025-02-08 04:00] VITALS: BP 110/73; TEMP 97.7; O2SAT 97
[2025-02-08 06:19] LABS: PLATELET COUNT (AUTO) 319 K/uL (150-450); RED BLOOD CELL COUNT(AUTO) 3.25 MIL/uL (4.5-6.0); RED CELL DISTRIBUTION WIDTH 16.6 % (11.5-15.0); WHITE BLOOD COUNT (AUTO) 8.6 K/uL (4.3-11.0)
[2025-02-08 06:36] LABS: CALCIUM, SERUM 9.6 mg/dL (8.5-10.1); CREATININE 1.4 mg/dL (0.6-1.3); PHOSPHORUS 3.8 mg/dL (2.5-4.9); SODIUM SERUM 139.0 mmol/L (136-145); UREA NITROGEN, BLOOD 48.0 mg/dL (7-18)
[2025-02-08] MEDS: PANTOPRAZOLE 40 MG TABLET.DR PO SCH (07:30)
[2025-02-08] MEDS: MULTIVIT W/MINERALS 1 TAB TABLET PO SCH (08:49)
[2025-02-08] MEDS: TRAMADOL HCL 50 MG TABLET PO SCH (08:49)
[2025-02-08] MEDS: DOCUSATE SODIUM 100 MG CAPSULE PO SCH (08:49)
[2025-02-08 08:56] VITALS: BP 99/59; TEMP 97.5; O2SAT 99
[2025-02-08 10:12] LABS: CREATININE, URINE 35.7 MG/DL (30.0-125.0); URINE SODIUM, RANDOM 50.0 mmol/l (40-220); URINE TOTAL PROTEIN 66.8 mg/dL (0-11.9)
[2025-02-08 10:34] LABS: APPEARANCE,URINE CLEAR (CLEAR); BLOOD, URINE TRACE-INTA Ery/uL (NEGATIVE); LEUKOCYTE ESTERASE ,URINE NEGATIVE (NEGATIVE); NITRITE, URINE NEGATIVE (NEGATIVE); UGLUCOSE NEGATIVE (NEGATIVE)
[2025-02-08 10:35] LABS: ADD URINE CULTURE NO; EOSINOPHIL,URINE None Seen; SQUAMOUS EPITHELIAL CELL,UR Few /HPF (None Seen)
[2025-02-08 16:48] VITALS: BP 99/68; TEMP 100.2; O2SAT 97
[2025-02-08 20:00] VITALS: BP 105/64; TEMP 100; O2SAT 98
[2025-02-09] VITALS: BP 98/57; TEMP 99.9; O2SAT 98
[2025-02-09 04:00] VITALS: BP 83/45; TEMP 97.5; O2SAT 97
[2025-02-09 04:10] VITALS: BP 84/66
[2025-02-09] MEDS: MIDODRINE HCL (5MG) 5 MG TABLET PO PRN (04:23)
[2025-02-09 06:03] VITALS: BP 120/69; TEMP 98.3
[2025-02-09 20:00] VITALS: BP 99/51; TEMP 98.8; O2SAT 98
[2025-02-10 03:46] LABS: PLATELET COUNT (AUTO) 286 K/uL (150-450); RED BLOOD CELL COUNT(AUTO) 3.12 MIL/uL (4.5-6.0); RED CELL DISTRIBUTION WIDTH 16.8 % (11.5-15.0); WHITE BLOOD COUNT (AUTO) 11.9 K/uL (4.3-11.0)
[2025-02-10 04:03] LABS: ASPARTATE AMINOTRANSFERASE 12.0 U/L (15-37); CALCIUM, SERUM 9.0 mg/dL (8.5-10.1); CREATININE 1.6 mg/dL (0.6-1.3); PHOSPHORUS 2.9 mg/dL (2.5-4.9); SODIUM SERUM 138.0 mmol/L (136-145); TOTAL PROTEIN, SERUM 7.2 g/dL (6.4-8.2); UREA NITROGEN, BLOOD 25.0 mg/dL (7-18)
[2025-02-10 04:19] LABS: CREATINE KINASE, TOTAL 38.0 U/L (39-308)
[2025-02-10 08:00] VITALS: BP 91/59; TEMP 98.4; O2SAT 99
[2025-02-10] MEDS: POTASSIUM CL. PREMIX PERIPHER. 50 ML IV SCH (10:28)
[2025-02-10] MEDS: THERAHONEY GEL 1.5 OZ TUBE TP SCH (11:28)
[2025-02-10 16:00] VITALS: BP 96/59; TEMP 98.6; O2SAT 97
[2025-02-10 20:00] VITALS: BP 107/69; TEMP 99.5; O2SAT 98
[2025-02-11 08:00] VITALS: BP 106/59; TEMP 98.2; O2SAT 99
[2025-02-11] MEDS: CEFTRIAXONE 1 G in IV D5W 50 ML IV SCH (08:55)
[2025-02-11 13:55] LABS: ASPARTATE AMINOTRANSFERASE 9.0 U/L (15-37); CALCIUM, SERUM 9.8 mg/dL (8.5-10.1); CREATININE 1.7 mg/dL (0.6-1.3); PHOSPHORUS 3.4 mg/dL (2.5-4.9); SODIUM SERUM 141.0 mmol/L (136-145); TOTAL PROTEIN, SERUM 8.2 g/dL (6.4-8.2); UREA NITROGEN, BLOOD 20.0 mg/dL (7-18)
[2025-02-11 13:57] LABS: INR 1.08 (0.91-1.10)
[2025-02-11 14:08] LABS: PLATELET COUNT (AUTO) 346 K/uL (150-450); RED BLOOD CELL COUNT(AUTO) 2.46 MIL/uL (4.5-6.0); RED CELL DISTRIBUTION WIDTH 16.2 % (11.5-15.0); WHITE BLOOD COUNT (AUTO) 11.0 K/uL (4.3-11.0)
[2025-02-11 16:00] VITALS: BP 109/57; TEMP 99.1; O2SAT 98
[2025-02-11 20:00] VITALS: BP 100/66; TEMP 98.6; O2SAT 98
[2025-02-12 08:00] VITALS: BP 97/59; TEMP 97.7; O2SAT 100
[2025-02-12 16:00] VITALS: BP 93/62; TEMP 98.4; O2SAT 97
[2025-02-12 20:00] VITALS: BP 123/63; TEMP 98.8; O2SAT 98
[2025-02-13 08:00] VITALS: BP 111/65; TEMP 97.9; O2SAT 98
[2025-02-13 09:57] LABS: PLATELET COUNT (AUTO) 282 K/uL (150-450); RED BLOOD CELL COUNT(AUTO) 3.05 MIL/uL (4.5-6.0); RED CELL DISTRIBUTION WIDTH 15.6 % (11.5-15.0); WHITE BLOOD COUNT (AUTO) 5.2 K/uL (4.3-11.0)
[2025-02-13] MEDS: MORPHINE SULFATE INJ 2 MG/ML DISP.SYRIN IV PRN (10:32)
[2025-02-13] MEDS ORDERED: MIDAZOLAM HCL 2 MG/2ML VIAL IV PRN (11:00)
[2025-02-13] MEDS ORDERED: NALOXONE PREFILLED SYRINGE 2 MG/2 ML SYRINGE IV PRN (11:00)
[2025-02-13] MEDS ORDERED: FENTANYL PF 250MCG/5ML AMPUL IV PRN (11:00)
[2025-02-13] MEDS ORDERED: FLUMAZENIL 0.5 MG VIAL IV PRN (11:00)
[2025-02-13 11:06] LABS: ASPARTATE AMINOTRANSFERASE 12.0 U/L (15-37); CALCIUM, SERUM 9.3 mg/dL (8.5-10.1); CREATININE 1.4 mg/dL (0.6-1.3); PHOSPHORUS 3.6 mg/dL (2.5-4.9); SODIUM SERUM 140.0 mmol/L (136-145); TOTAL PROTEIN, SERUM 7.5 g/dL (6.4-8.2); UREA NITROGEN, BLOOD 19.0 mg/dL (7-18)
[2025-02-13 16:00] VITALS: BP 95/68; TEMP 98; O2SAT 99
[2025-02-13 20:00] VITALS: BP 101/67; TEMP 98.1; O2SAT 98
[2025-02-14 08:00] VITALS: BP 131/73; TEMP 98.2; O2SAT 98
== END 2025-02-14 15:09 | DRG 698 ==
LOC: ER 16:05 → MED 20:42
PROVIDERS: ADMIT Internal Medicine; ATTEND Internal Medicine
PROC: 0T25X0Z Change Drainage Device in Kidney, External Approach (ICD-10-PCS; principal; 2025-02-13)
DX: T83.022A Displacement of nephrostomy catheter, initial encounter (principal); L89.154 Pressure ulcer of sacral region, stage 4; L89.224 Pressure ulcer of left hip, stage 4; L89.214 Pressure ulcer of right hip, stage 4; E87.1 Hypo-osmolality and hyponatremia; I69.354 Hemiplegia and hemiparesis following cerebral infarction affecting left non-dominant side; N17.9 Acute kidney failure, unspecified; N13.30 Unspecified hydronephrosis; I12.9 Hypertensive chronic kidney disease with stage 1 through stage 4 chronic kidney disease, or unspecified chronic kidney disease; N13.9 Obstructive and reflux uropathy, unspecified; D64.9 Anemia, unspecified; E11.22 Type 2 diabetes mellitus with diabetic chronic kidney disease; E78.5 Hyperlipidemia, unspecified; Z74.01 Bed confinement status; N18.9 Chronic kidney disease, unspecified; M24.561 Contracture, right knee; M24.562 Contracture, left knee; Z87.442 Personal history of urinary calculi; Z79.899 Other long term (current) drug therapy; Z79.51 Long term (current) use of inhaled steroids; R79.89 Other specified abnormal findings of blood chemistry; E86.1 Hypovolemia; E87.6 Hypokalemia; L22 Diaper dermatitis; R32 Unspecified urinary incontinence; L89.516 Pressure-induced deep tissue damage of right ankle; Y92.129 Unspecified place in nursing home as the place of occurrence of the external cause; Y73.2 Prosthetic and other implants, materials and accessory gastroenterology and urology devices associated with adverse incidents
CPT/HCPCS: 36415; 71045-TC; 76770-TC; 80048-TC; 80053-TC; 80076-TC; 81001; 82550-TC; 82570-TC; 83690-TC; 83735-TC; 83970; 84100-TC; 84300-TC; 85025-TC; 85610-TC; 85730-TC; 86850-TC; 87081-TC; A4223; A6253; A6254; A6403; G0378; J0696; J2270; J3010; J3480; J7030; J7042; J7060

== ENCOUNTER 2025-05-07 22:42 | Inpatient (IN) | payer MEDICARE, OTHER ==
[~2025-05-07] VITALS: Ht 167.6 cm; Wt 41.7 kg
[~2025-05-07 22:42] MED LIST changes: +CHOL200026 PO; +MAG30ORA PO; +MIDO10TA PO; -NIRM1TAB10 PO; +NUT.237L71 PO; +OMEP20CA15 PO
[2025-05-07] MEDS: IV NS 0.9% 500 ML BAG IV ONE (23:45)
[2025-05-08] VITALS (26 sets, daily range): BP systolic 66–128; BP diastolic 41–94; TEMP 98.1–98.5; O2SAT 76–100
[2025-05-08 00:31] LABS: INR 1.06 (0.91-1.10)
[2025-05-08 00:32] LABS: CALCIUM, SERUM 11.7 mg/dL (8.5-10.1); PLATELET COUNT (AUTO) 542 K/uL (150-450); RED BLOOD CELL COUNT(AUTO) 2.12 MIL/uL (4.5-6.0); RED CELL DISTRIBUTION WIDTH 16.0 % (11.5-15.0); SODIUM SERUM 126.0 mmol/L (136-145); WHITE BLOOD COUNT (AUTO) 22.2 K/uL (4.3-11.0)
[2025-05-08 00:40] LABS: LACTIC ACID 1.7 mmol/L (0.4-2.0)
[2025-05-08 00:46] LABS: ASPARTATE AMINOTRANSFERASE 16.0 U/L (15-37); CREATININE 3.9 mg/dL (0.6-1.3); TOTAL PROTEIN, SERUM 8.0 g/dL (6.4-8.2)
[2025-05-08 00:50] LABS: UREA NITROGEN, BLOOD 130.0 mg/dL (7-18)
[2025-05-08] MEDS ORDERED: VANCOMYCIN 1 GM /D5W 250 ML PB IV ONE (01:02)
[2025-05-08] MEDS ORDERED: PIPERACI/TAZO 3.375GM/D5W 50ML PB IV ONE (01:02)
[2025-05-08] MEDS: PIPERACILLIN /TAZOBACTAM 3.375 G in IV D5W 50 ML IV ONE (01:05)
[2025-05-08] MEDS ORDERED: INSULIN REGULAR, HUMAN 100 UNIT/ML 10 ML VIAL ONE (01:21)
[2025-05-08] MEDS ORDERED: MORPHINE SULFATE INJ 2 MG/ML DISP.SYRIN ONE (01:21)
[2025-05-08] MEDS ORDERED: DEXTROSE 50%-WATER 50 ML DISP.SYRIN ONE (01:21)
[2025-05-08] MEDS ORDERED: SODIUM ZIRCONIUM CYCLOSILICATE 10 GM POWD.PACK ONE (01:21)
[2025-05-08] MEDS: MORPHINE SULFATE INJ 2 MG/ML DISP.SYRIN IV ONE (01:26)
[2025-05-08] MEDS: DEXTROSE 50%-WATER 50 ML DISP.SYRIN IV ONE (01:26)
[2025-05-08 01:27] LABS: LYMPHOCYTES % (MANUAL) 4 % (16-48); MONOCYTES % (MANUAL) 1 % (0-11.0); NEUTROPHILS % (MANUAL) 95 (42-76); PLATELET ESTIMATE INCREASED
[2025-05-08] MEDS: IV NS 0.9% 1,000 ML BAG IV ONE ×2 (01:27→02:23)
[2025-05-08] MEDS: INSULIN REGULAR, HUMAN 100 UNIT/ML 10 ML VIAL IV ONE (01:29)
[2025-05-08] MEDS: VANCOMYCIN 1 GM in IV D5W 250 ML IV ONE (01:35)
[2025-05-08] MEDS: SODIUM ZIRCONIUM CYCLOSILICATE 10 GM POWD.PACK PO ONE (01:35)
[2025-05-08 01:54] LABS: APPEARANCE,URINE SLIGHTLY CLOUDY (CLEAR); UGLUCOSE NEGATIVE (NEGATIVE)
[2025-05-08 01:55] LABS: BLOOD, URINE 2+ Ery/uL (NEGATIVE); NITRITE, URINE NEGATIVE (NEGATIVE)
[2025-05-08 01:56] LABS: LEUKOCYTE ESTERASE ,URINE 3+ (NEGATIVE)
[2025-05-08 02:12] LABS: ADD URINE CULTURE YES; SQUAMOUS EPITHELIAL CELL,UR 0-2 /HPF (None Seen)
[2025-05-08] MEDS ORDERED: DOSING PER PHARMACY-VANCOMYCIN IV XX PRN (03:30)
[2025-05-08] MEDS ORDERED: MAG HYDROX/AL HYDROX/SIMETH 30 ML UDC PO PRN (03:30)
[2025-05-08] MEDS ORDERED: DOSING PER PHARMACY-ZOSYN IV 1 EA EA XX PRN (03:30)
[2025-05-08] MEDS ORDERED: ONDANSETRON HCL/PF 4 MG/2 ML VIAL IVP PRN (03:30)
[2025-05-08] MEDS: MORPHINE SULFATE INJ 4 MG/ML DISP.SYRIN IV PRN (04:00)
[2025-05-08 04:25] LABS: CALCIUM, SERUM 10.1 mg/dL (8.5-10.1)
[2025-05-08] MEDS ORDERED: MORPHINE SULFATE INJ 2 MG/ML DISP.SYRIN IV PRN (04:30)
[2025-05-08] MEDS ORDERED: NOREPINEPHRINE 8MG/250ML RTU 250 ML IV ONE (04:35)
[2025-05-08 04:36] LABS: CREATININE 3.4 mg/dL (0.6-1.3); SODIUM SERUM 125.0 mmol/L (136-145)
[2025-05-08] MEDS: NOREPINEPHRINE 8 MG in IV NS 0.9% 242 ML IV PRN (04:45)
[2025-05-08] MEDS ORDERED: SODIUM BICARBONATE SYR 50 MEQ/50 ML DISP.SYRIN ONE (04:54)
[2025-05-08] MEDS: SODIUM BICARBONATE SYR 50 MEQ/50 ML DISP.SYRIN IV ONE ×2 (05:00→06:30)
[2025-05-08 05:15] LABS: ABG BASE EXCESS -14.8 mmol/L (-2.0-3.0); ABG OXYGEN SATURATION 97.7 % (94.0-98.0); ABG PCO2 19.9 mmHg (35.0-48.0); ABG PH 7.310 (7.350-7.450); ABG PO2 110.3 mmHg (83.0-108.0); ABG TOTAL HEMOGLOBIN 8.3 G/dL (13.5-17.5); SITE, ABG RIGHT RADIAL
[2025-05-08] MEDS ORDERED: LORAZEPAM INJ 2 MG/ML VIAL ONE (05:37)
[2025-05-08] MEDS: Sodium Bicarbonate 150 MEQ in IV D5W 1,000 ML IV PRN (06:00)
[2025-05-08] MEDS: PANTOPRAZOLE 40 MG VIAL IV SCH (06:00)
[2025-05-08] MEDS: LORAZEPAM INJ 2 MG/ML VIAL IV ONE (06:08)
[2025-05-08] MEDS: IV NS 0.9% 1,000 ML IV PRN (07:00)
[2025-05-08 08:16] LABS: LACTIC ACID 3.2 mmol/L (0.4-2.0)
[2025-05-08] MEDS: PIPERACILLIN /TAZOBACTAM 2.25 G in IV D5W 50 ML IV SCH (08:18)
[2025-05-08] MEDS ORDERED: MEGE20TA3 PO (08:40)
[2025-05-08] MEDS ORDERED: ARGI1POW13 PO (08:40)
[2025-05-08] MEDS ORDERED: CRAN3875 PO (08:40)
[2025-05-08] MEDS ORDERED: NUTR1PAC14 PO (08:41)
[2025-05-08] MEDS: DAKINS QUARTER STRENGTH (0.125%) 480 ML BOTTLE TOP SCH (09:34)
[2025-05-08] MEDS ORDERED: DEXTROSE 50%-WATER 50 ML DISP.SYRIN IVP ONE (11:00)
[2025-05-08] MEDS ORDERED: Sodium Bicarbonate 50 MEQ/50 ML VIAL IV ONE (12:13)
[2025-05-08 13:34] LABS: PLATELET COUNT (AUTO) 560 K/uL (150-450); RED BLOOD CELL COUNT(AUTO) 2.98 MIL/uL (4.5-6.0); RED CELL DISTRIBUTION WIDTH 15.3 % (11.5-15.0); WHITE BLOOD COUNT (AUTO) 21.5 K/uL (4.3-11.0)
[2025-05-08 14:05] LABS: CALCIUM, SERUM 10.2 mg/dL (8.5-10.1); CREATININE 2.7 mg/dL (0.6-1.3); SODIUM SERUM 143.0 mmol/L (136-145)
[2025-05-08 14:33] LABS: UREA NITROGEN, BLOOD 93.0 mg/dL (7-18)
[2025-05-08] MEDS ORDERED: SODIUM BICARBONATE SYR 50 MEQ/50 ML DISP.SYRIN IV ONE (15:20)
[2025-05-08 17:57] LABS: CALCIUM, SERUM 10.0 mg/dL (8.5-10.1); CREATININE 2.5 mg/dL (0.6-1.3); SODIUM SERUM 143.0 mmol/L (136-145)
[2025-05-08 18:07] LABS: UREA NITROGEN, BLOOD 86.0 mg/dL (7-18)
[2025-05-09] VITALS (55 sets, daily range): BP systolic 79–138; BP diastolic 54–91; TEMP 97.8–98.2; O2SAT 95–100
[2025-05-09] MEDS: VANCOMYCIN 750 MG in IV D5W 250 ML IV SCH (01:45)
[2025-05-09 04:17] LABS: PLATELET COUNT (AUTO) 442 K/uL (150-450); RED BLOOD CELL COUNT(AUTO) 2.68 MIL/uL (4.5-6.0); RED CELL DISTRIBUTION WIDTH 15.4 % (11.5-15.0); WHITE BLOOD COUNT (AUTO) 19.1 K/uL (4.3-11.0)
[2025-05-09 04:33] LABS: CREATINE KINASE, TOTAL 149.0 U/L (39-308); LDL 34.0 mg/dL (0-99)
[2025-05-09 04:34] LABS: ASPARTATE AMINOTRANSFERASE 28.0 U/L (15-37); CALCIUM, SERUM 9.6 mg/dL (8.5-10.1); CREATININE 2.3 mg/dL (0.6-1.3); PHOSPHORUS 3.5 mg/dL (2.5-4.9); TOTAL PROTEIN, SERUM 6.6 g/dL (6.4-8.2); UREA NITROGEN, BLOOD 71.0 mg/dL (7-18)
[2025-05-09 04:45] LABS: SODIUM SERUM 148.0 mmol/L (136-145)
[2025-05-09] MEDS: POTASSIUM CL. PREMIX PERIPHER. 50 ML IV SCH (06:10)
[2025-05-09] MEDS ORDERED: MEROPENEM 500 MG in IV NS 0.9% 50 ML IV SCH (21:00)
[2025-05-09] MEDS: MEROPENEM 500 MG in IV NS 0.9% 50 ML IV SCH (21:01)
[2025-05-10] VITALS (81 sets, daily range): BP systolic 74–134; BP diastolic 45–97; TEMP 98–98.7; O2SAT 97–100
[2025-05-10 05:07] LABS: PTH, INTACT 18 pg/mL (15-65)
[2025-05-10 05:11] LABS: PLATELET COUNT (AUTO) 349 K/uL (150-450); RED BLOOD CELL COUNT(AUTO) 2.19 MIL/uL (4.5-6.0); RED CELL DISTRIBUTION WIDTH 15.8 % (11.5-15.0); WHITE BLOOD COUNT (AUTO) 14.2 K/uL (4.3-11.0)
[2025-05-10 05:15] LABS: CALCIUM, SERUM 8.5 mg/dL (8.5-10.1); CREATININE 1.9 mg/dL (0.6-1.3); SODIUM SERUM 148.0 mmol/L (136-145); UREA NITROGEN, BLOOD 50.0 mg/dL (7-18)
[2025-05-10 05:43] LABS: LYMPHOCYTES % (MANUAL) 13 % (16-48); MONOCYTES % (MANUAL) 5 % (0-11.0); NEUTROPHILS % (MANUAL) 82 (42-76); PLATELET ESTIMATE ADEQUATE
[2025-05-10] MEDS: POTASSIUM CL. PREMIX PERIPHER. 50 ML IV SCH ×2 (06:23→09:21)
[2025-05-10] MEDS: Z GUARD REMEDY 4 OZ OINT TP PRN (08:25)
[2025-05-10] MEDS: IV 1/2NS 1000 ML 1,000 ML IV PRN (16:46)
[2025-05-10 17:49] LABS: CALCIUM, SERUM 7.7 mg/dL (8.5-10.1); CREATININE 1.7 mg/dL (0.6-1.3); SODIUM SERUM 140.0 mmol/L (136-145); UREA NITROGEN, BLOOD 40.0 mg/dL (7-18)
[2025-05-10] MEDS: VANCOMYCIN 1 GM in IV D5W 250ml IV SCH (22:00)
[2025-05-11] VITALS (81 sets, daily range): BP systolic 67–142; BP diastolic 38–88; TEMP 98–98.4; O2SAT 95–99
[2025-05-11 04:36] LABS: PLATELET COUNT (AUTO) 301 K/uL (150-450); RED BLOOD CELL COUNT(AUTO) 2.36 MIL/uL (4.5-6.0); RED CELL DISTRIBUTION WIDTH 15.6 % (11.5-15.0); WHITE BLOOD COUNT (AUTO) 10.9 K/uL (4.3-11.0)
[2025-05-11 04:45] LABS: CALCIUM, SERUM 7.6 mg/dL (8.5-10.1); CREATININE 1.5 mg/dL (0.6-1.3); SODIUM SERUM 138.0 mmol/L (136-145); UREA NITROGEN, BLOOD 35.0 mg/dL (7-18)
[2025-05-11] MEDS: POTASSIUM CL. PREMIX PERIPHER. 50 ML IV SCH (10:20)
[2025-05-11] MEDS: MIDODRINE HCL (5MG) 5 MG TABLET PO SCH (10:38)
[2025-05-12] VITALS (55 sets, daily range): BP systolic 73–130; BP diastolic 44–110; TEMP 97.5–97.9; O2SAT 97–100
[2025-05-12 04:35] LABS: PLATELET COUNT (AUTO) 305 K/uL (150-450); RED BLOOD CELL COUNT(AUTO) 2.66 MIL/uL (4.5-6.0); RED CELL DISTRIBUTION WIDTH 15.6 % (11.5-15.0); WHITE BLOOD COUNT (AUTO) 13.4 K/uL (4.3-11.0)
[2025-05-12 04:42] LABS: CALCIUM, SERUM 7.3 mg/dL (8.5-10.1); CREATININE 1.3 mg/dL (0.6-1.3); SODIUM SERUM 135.0 mmol/L (136-145); UREA NITROGEN, BLOOD 29.0 mg/dL (7-18)
[2025-05-12] MEDS: POTASSIUM CL. PREMIX PERIPHER. 50 ML IV SCH (08:56)
[2025-05-12] MEDS: DOCUSATE SODIUM 100 MG CAPSULE PO SCH (17:12)
[2025-05-12] MEDS: MEROPENEM 1 G in IV NS 0.9% 100 ML IV SCH (21:00)
[2025-05-12] MEDS: IV NS 0.9% 250 ML IV PRN (21:00)
[2025-05-13] VITALS (31 sets, daily range): BP systolic 79–164; BP diastolic 55–109; TEMP 97.5–97.8; O2SAT 96–100
[2025-05-13 04:39] LABS: PLATELET COUNT (AUTO) 301 K/uL (150-450); RED BLOOD CELL COUNT(AUTO) 2.56 MIL/uL (4.5-6.0); RED CELL DISTRIBUTION WIDTH 15.4 % (11.5-15.0); WHITE BLOOD COUNT (AUTO) 11.4 K/uL (4.3-11.0)
[2025-05-13 04:59] LABS: ASPARTATE AMINOTRANSFERASE 22.0 U/L (15-37); CALCIUM, SERUM 7.3 mg/dL (8.5-10.1); CREATININE 1.2 mg/dL (0.6-1.3); PHOSPHORUS 2.6 mg/dL (2.5-4.9); SODIUM SERUM 138.0 mmol/L (136-145); TOTAL PROTEIN, SERUM 5.5 g/dL (6.4-8.2); UREA NITROGEN, BLOOD 24.0 mg/dL (7-18)
[2025-05-13 08:09] LABS: *SPE A/G RATIO 0.5 (0.7-1.7); *SPE ALBUMIN 1.9 g/dL (2.9-4.4); *SPE ALPHA-1-GLOBULIN 0.5 g/dL (0.0-0.4); *SPE ALPHA-2-GLOBULIN 0.9 g/dL (0.4-1.0); *SPE BETA GLOBULIN 0.8 g/dL (0.7-1.3); *SPE GLOBULIN, TOTAL 3.7 g/dL (2.2-3.9); *SPE M-SPIKE Not Observed g/dL (Not Observed); *SPE PROTEIN TOTAL 5.6 g/dL (6.0-8.5); *SPEGAMMA GLOBULIN 1.5 g/dL (0.4-1.8)
[2025-05-13] MEDS: POTASSIUM CHLORIDE 20 MEQ POWDER PACKET GT SCH (08:35)
[2025-05-13] MEDS: MAGNESIUM OXIDE 400 MG TABLET PO SCH (12:01)
[2025-05-14] VITALS (7 sets, daily range): BP systolic 94–146; BP diastolic 57–79; TEMP 97.5–99.1; O2SAT 96–100
[2025-05-14] MEDS: HYDROCODONE/APAP 5/325MG TABLET PO PRN (04:24)
[2025-05-14 08:27] LABS: CALCIUM, SERUM 7.8 mg/dL (8.5-10.1); CREATININE 1.5 mg/dL (0.6-1.3); SODIUM SERUM 133.0 mmol/L (136-145); UREA NITROGEN, BLOOD 25.0 mg/dL (7-18)
[2025-05-14 08:34] LABS: PLATELET COUNT (AUTO) 301 K/uL (150-450); RED BLOOD CELL COUNT(AUTO) 2.56 MIL/uL (4.5-6.0); RED CELL DISTRIBUTION WIDTH 15.9 % (11.5-15.0); WHITE BLOOD COUNT (AUTO) 8.6 K/uL (4.3-11.0)
[2025-05-14] MEDS: PANTOPRAZOLE 40 MG/PACK PACK GT SCH (08:56)
[2025-05-14] MEDS: POTASSIUM CHLORIDE 20 MEQ POWDER PACKET PO ONE (10:19)
[2025-05-14 15:59] LABS: PHOSPHORUS 2.7 mg/dL (2.5-4.9)
[2025-05-15] VITALS (12 sets, daily range): BP systolic 100–130; BP diastolic 47–76; TEMP 97.9–99.1; O2SAT 99–100
[2025-05-15 10:14] LABS: PLATELET COUNT (AUTO) 318 K/uL (150-450); RED BLOOD CELL COUNT(AUTO) 2.35 MIL/uL (4.5-6.0); RED CELL DISTRIBUTION WIDTH 15.9 % (11.5-15.0); WHITE BLOOD COUNT (AUTO) 11.8 K/uL (4.3-11.0)
[2025-05-15 10:23] LABS: ASPARTATE AMINOTRANSFERASE 11.0 U/L (15-37); CALCIUM, SERUM 7.7 mg/dL (8.5-10.1); CREATININE 1.4 mg/dL (0.6-1.3); PHOSPHORUS 2.9 mg/dL (2.5-4.9); SODIUM SERUM 138.0 mmol/L (136-145); TOTAL PROTEIN, SERUM 6.0 g/dL (6.4-8.2); UREA NITROGEN, BLOOD 23.0 mg/dL (7-18)
[2025-05-15 11:26] LABS: LYMPHOCYTES % (MANUAL) 11 % (16-48); MONOCYTES % (MANUAL) 1 % (0-11.0); NEUTROPHILS % (MANUAL) 88 (42-76); PLATELET ESTIMATE ADEQUATE
[2025-05-15] MEDS: MAGNESIUM OXIDE 400 MG TABLET PO SCH (15:10)
[2025-05-16 07:33] LABS: PLATELET COUNT (AUTO) 338 K/uL (150-450); RED BLOOD CELL COUNT(AUTO) 2.79 MIL/uL (4.5-6.0); RED CELL DISTRIBUTION WIDTH 15.0 % (11.5-15.0); WHITE BLOOD COUNT (AUTO) 11.3 K/uL (4.3-11.0)
[2025-05-16 08:00] VITALS: BP 93/56; TEMP 98.8; O2SAT 100
[2025-05-16 08:48] LABS: ASPARTATE AMINOTRANSFERASE 17.0 U/L (15-37); CALCIUM, SERUM 8.3 mg/dL (8.5-10.1); CREATININE 1.3 mg/dL (0.6-1.3); PHOSPHORUS 3.5 mg/dL (2.5-4.9); SODIUM SERUM 135.0 mmol/L (136-145); TOTAL PROTEIN, SERUM 6.5 g/dL (6.4-8.2); UREA NITROGEN, BLOOD 23.0 mg/dL (7-18)
[2025-05-16] MEDS: MAGNESIUM OXIDE 400 MG TABLET PO ONE (09:52)
[2025-05-16 15:00] LABS: IRON, SERUM 18 ug/dl (50-175)
[2025-05-16 20:00] VITALS: BP 128/78; TEMP 99.5; O2SAT 99
[2025-05-16 20:10] VITALS: TEMP 98.9
[2025-05-17 05:07] LABS: FOLIC ACID 10.7 ng/mL (>3.0)
[2025-05-17 09:41] VITALS: BP 90/58; TEMP 98.2; O2SAT 100
[2025-05-17] MEDS: ENSURE ENLIVE 237 ML LIQUID (VANILLA) PO SCH (16:41)
[2025-05-17 18:43] VITALS: BP 109/63; TEMP 98.6; O2SAT 99
[2025-05-17 20:00] VITALS: BP 117/64; TEMP 99; O2SAT 99
[2025-05-18] MEDS: MAGNESIUM HYDROXIDE 30 ML UDC PO PRN (03:46)
[2025-05-18 07:00] VITALS: BP 76/45; TEMP 98.1; O2SAT 100
[2025-05-18 12:43] LABS: PLATELET COUNT (AUTO) 431 K/uL (150-450); RED BLOOD CELL COUNT(AUTO) 2.90 MIL/uL (4.5-6.0); RED CELL DISTRIBUTION WIDTH 15.2 % (11.5-15.0); WHITE BLOOD COUNT (AUTO) 8.6 K/uL (4.3-11.0)
[2025-05-18 13:02] LABS: CALCIUM, SERUM 8.7 mg/dL (8.5-10.1); CREATININE 1.5 mg/dL (0.6-1.3); PHOSPHORUS 3.1 mg/dL (2.5-4.9); SODIUM SERUM 140.0 mmol/L (136-145); UREA NITROGEN, BLOOD 26.0 mg/dL (7-18)
[2025-05-18] MEDS: POTASSIUM CHLORIDE 20 MEQ TAB.PRT.SR PO ONE (13:42)
[2025-05-18 15:00] VITALS: BP 125/79; TEMP 98.8; O2SAT 98
[2025-05-18 20:00] VITALS: BP 120/83; TEMP 98.1; O2SAT 99
[2025-05-19 08:00] VITALS: BP 96/60; TEMP 97.5; O2SAT 100
[2025-05-19 13:24] LABS: CALCIUM, SERUM 9.2 mg/dL (8.5-10.1); CREATININE 1.3 mg/dL (0.6-1.3); PHOSPHORUS 2.7 mg/dL (2.5-4.9); SODIUM SERUM 138.0 mmol/L (136-145); UREA NITROGEN, BLOOD 30.0 mg/dL (7-18)
[2025-05-19 13:49] LABS: PLATELET COUNT (AUTO) 488 K/uL (150-450); RED BLOOD CELL COUNT(AUTO) 2.99 MIL/uL (4.5-6.0); RED CELL DISTRIBUTION WIDTH 15.0 % (11.5-15.0); WHITE BLOOD COUNT (AUTO) 8.9 K/uL (4.3-11.0)
[2025-05-19 16:00] VITALS: BP 112/63; TEMP 98.4; O2SAT 100
[2025-05-19 20:00] VITALS: BP 116/73; TEMP 98.8; O2SAT 100
[2025-05-20 06:03] LABS: PLATELET COUNT (AUTO) 450 K/uL (150-450); RED BLOOD CELL COUNT(AUTO) 2.99 MIL/uL (4.5-6.0); RED CELL DISTRIBUTION WIDTH 14.8 % (11.5-15.0); WHITE BLOOD COUNT (AUTO) 6.6 K/uL (4.3-11.0)
[2025-05-20 06:30] LABS: CALCIUM, SERUM 9.0 mg/dL (8.5-10.1); CREATININE 1.3 mg/dL (0.6-1.3); PHOSPHORUS 3.5 mg/dL (2.5-4.9); SODIUM SERUM 136.0 mmol/L (136-145); UREA NITROGEN, BLOOD 28.0 mg/dL (7-18)
[2025-05-20 08:00] VITALS: BP 91/61; TEMP 97.9; O2SAT 100
[2025-05-20 09:09] LABS: VITAMIN B1 THIAMINE,WB 115.3 nmol/L (66.5-200.0)
[2025-05-20 16:00] VITALS: BP 129/77; TEMP 99.1; O2SAT 99
[2025-05-20 20:00] VITALS: BP 112/70; TEMP 96.8; O2SAT 99
[2025-05-21] MEDS: ACETAMINOPHEN 325 MG TABLET PO PRN (11:28)
[2025-05-21 12:19] LABS: PLATELET COUNT (AUTO) 485 K/uL (150-450); RED BLOOD CELL COUNT(AUTO) 2.82 MIL/uL (4.5-6.0); RED CELL DISTRIBUTION WIDTH 14.7 % (11.5-15.0); WHITE BLOOD COUNT (AUTO) 8.6 K/uL (4.3-11.0)
[2025-05-21 12:21] LABS: ASPARTATE AMINOTRANSFERASE 11.0 U/L (15-37); CALCIUM, SERUM 8.6 mg/dL (8.5-10.1); CREATININE 1.2 mg/dL (0.6-1.3); PHOSPHORUS 3.3 mg/dL (2.5-4.9); SODIUM SERUM 135.0 mmol/L (136-145); TOTAL PROTEIN, SERUM 7.4 g/dL (6.4-8.2); UREA NITROGEN, BLOOD 23.0 mg/dL (7-18)
[2025-05-21 16:00] VITALS: BP 122/65; TEMP 98.8; O2SAT 98
[2025-05-21 17:08] VITALS: BP 118/65
== END 2025-05-21 18:53 | DRG 698 ==
LOC: ER 22:48 → ICU 05-08 03:30 → TELE 05-13 22:43 → MED 05-15 10:40
PROVIDERS: ADMIT Internal Medicine
PROC: 30233N1 Transfusion of Nonautologous Red Blood Cells into Peripheral Vein, Percutaneous Approach (ICD-10-PCS; principal; 2025-05-08)
PROC: 05HM33Z Insertion of Infusion Device into Right Internal Jugular Vein, Percutaneous Approach (ICD-10-PCS; 2025-05-08)
DX: T83.511A Infection and inflammatory reaction due to indwelling urethral catheter, initial encounter (principal); A40.0 Sepsis due to streptococcus, group A; G93.41 Metabolic encephalopathy; L89.214 Pressure ulcer of right hip, stage 4; L89.224 Pressure ulcer of left hip, stage 4; R65.21 Severe sepsis with septic shock; L89.150 Pressure ulcer of sacral region, unstageable; E87.20 Acidosis, unspecified; E87.0 Hyperosmolality and hypernatremia; D62 Acute posthemorrhagic anemia; Z66 Do not resuscitate; N17.9 Acute kidney failure, unspecified; N39.0 Urinary tract infection, site not specified; B96.20 Unspecified Escherichia coli [E. coli] as the cause of diseases classified elsewhere; B96.4 Proteus (mirabilis) (morganii) as the cause of diseases classified elsewhere; E11.22 Type 2 diabetes mellitus with diabetic chronic kidney disease; I12.9 Hypertensive chronic kidney disease with stage 1 through stage 4 chronic kidney disease, or unspecified chronic kidney disease; N18.9 Chronic kidney disease, unspecified; F03.90 Unspecified dementia, unspecified severity, without behavioral disturbance, psychotic disturbance, mood disturbance, and anxiety; D64.9 Anemia, unspecified; E87.1 Hypo-osmolality and hyponatremia; I69.354 Hemiplegia and hemiparesis following cerebral infarction affecting left non-dominant side; Z16.12 Extended spectrum beta lactamase (ESBL) resistance; K56.7 Ileus, unspecified; N13.9 Obstructive and reflux uropathy, unspecified; E86.0 Dehydration; K21.9 Gastro-esophageal reflux disease without esophagitis; E86.1 Hypovolemia; Z93.6 Other artificial openings of urinary tract status; M62.471 Contracture of muscle, right ankle and foot; Z86.19 Personal history of other infectious and parasitic diseases; Z79.51 Long term (current) use of inhaled steroids; Z79.899 Other long term (current) drug therapy; M24.562 Contracture, left knee; M24.561 Contracture, right knee; M62.472 Contracture of muscle, left ankle and foot; K59.00 Constipation, unspecified; E78.5 Hyperlipidemia, unspecified; L98.9 Disorder of the skin and subcutaneous tissue, unspecified; E87.5 Hyperkalemia; M89.8X9 Other specified disorders of bone, unspecified site; Z87.448 Personal history of other diseases of urinary system; N20.0 Calculus of kidney; Z87.442 Personal history of urinary calculi; E83.42 Hypomagnesemia; E87.6 Hypokalemia; Y84.6 Urinary catheterization as the cause of abnormal reaction of the patient, or of later complication, without mention of misadventure at the time of the procedure; Y92.129 Unspecified place in nursing home as the place of occurrence of the external cause
CPT/HCPCS: 36415; 36600; 70450-TC; 71045-TC; 74018; 76770-TC; 80048-TC; 80053-TC; 80061-TC; 80076-TC; 81001; 82550-TC; 82607-TC; 82728-TC; 82803-TC; 83540-TC; 83605-TC; 83735-TC; 83921; 83970; 84100-TC; 84155; 84165; 84425; 84443-TC; 85025-TC; 85027-TC; 85730-TC; 86850-TC; 87040-TC; 87081-TC; 87086-TC; 87186-TC; 92526; 92611; 93307-TC; A4223; A6213; A6253; A6403; C1752; G0378; J1815; J2060; J2185; J2270; J2470; J2543; J3373; J3374; J3480; J3490; J7030; J7040; J7050; J7060; P9016